=== PATIENT | male | born 1970 | race Two or more races ===

== ENCOUNTER 2025-06-15 06:41 | Emergency (ER) | payer SELFPAY ==
[2025-06-15 06:44] VITALS: BMI 29.5
[2025-06-15 06:54] VITALS: BP 114/71; PULSE 88; RESP 19; TEMP 36.9; O2SAT 98
--- NOTE | 2025-06-15 06:59 | XR_ITS ---
Examination: CT abdomen and pelvis without contrast. Coronal 3-D reconstructions. Sagittal 2-D reconstructions. Date and time of exam:June 14, 2012 2025, 0727 hrs. Indications: Constipation 2 weeks. CTDI: vol (mGy): 10.1. DLP: (mGycm): 678. Technique: Axial images of the abdomen have been obtained, 3 mm slice thickness Intravenous contrast material has not been administered. Low dose protocols were performed. One or more of the following dose reduction techniques were used; automated exposure control, adjustment of the mA and/or KV according to patient size, use of iterative reconstruction technique. Findings: Liver is irregular in contour Axial image 48 demonstrates 3 cm low-density lesion in the right lobe of the liver. Moderate hepatomegaly. Mild splenomegaly. Cholelithiasis. No pancreatic mass. No renal or ureteral calculi. Aorta normal size. Normal appendix. Colonic diverticulosis. Mild fluid in the pelvis which may relate to the patient's liver disease Markedly abnormal thickening of urinary bladder up to 20 mm Impression: Cirrhosis. Recommend elective MRI abdomen liver follow-up pre and postcontrast to confirm 3 cm right lobe liver lesion, differential would include hepatic metastasis, primary hepatocellular carcinoma Cholelithiasis Markedly abnormal thickening of urinary bladder wall, differential would include cystitis, urinary tract outflow obstruction secondary to the patient's moderate hepatomegaly, bladder carcinoma not excluded Recommend urology consultation and follow-up
--- NOTE | 2025-06-15 07:05 | EDNOTE_ITS ---
<Statement entered by Darshana Bucio MD - 06/15/25 15:15> As co-signing physician, I was present and available for consult prn. I concur with the plan and care as documented by the midlevel provider. ED Abdominal Pain RME/HPI General Chief Complaint: Abdominal Pain Stated complaint: NO BM IN 3 DAYS, ABD PAIN, VERY LITTLE URINE Time seen by provider: 06/15/25 06:51 Arrival date/time: 06/15/25 06:41 RME / HPI RME / HPI narrative: 54-year-old male patient with no previous medical history presents emergency department with complaint of abdominal pain, acid reflux and decreased urine production in the past 3 days. Patient denies any previous history of abdominal surgeries. Patient states that acid reflux is common when he drinks alcohol and he states he had some beer over the weekend. He denies any aggravating or alleviating factors. He rates his abdominal discomfort as a 5 out of 10. He denies chest pain, he denies bilateral lower leg swelling, he denies shortness of breath with or without activity. Related Data Allergies Allergy/AdvReac Type Severity Reaction Status Date / Time No Known Allergies Allergy Verified 06/15/25 06:44 Review of Systems Review of Systems Systems Reviewed: All systems reviewed, normal except as documented Constitutional Constitutional: Reports system reviewed and no additional complaints, except as documented Cardiovascular Cardiovascular: Reports system reviewed and no additional complaints, except as documented Respiratory Respiratory: Reports system reviewed and no additional complaints, except as documented Gastrointestinal Gastrointestinal: Reports system reviewed and no additional complaints, except as documented Genitourinary Genitourinary: Reports system reviewed and no additional complaints, except as documented ED Exam General General appearance: Present alert and in no apparent distress Head Head exam: Present atraumatic and normocephalic ENT ENT exam: Present normal exam and normal oropharynx Neck Neck exam: Present normal inspection and full ROM Chest Chest inspection: Present normal inspection and symmetric chest wall rise; Absent tenderness Respiratory Respiratory exam: Present normal lung sounds bilaterally Cardiovascular Cardiovascular exam: Present regular rate, normal rhythm and normal heart sounds Abdominal Exam Abdominal exam: Present soft and tenderness; Absent distention, guarding, rebound, rigidity, tenderness at McBurney's Point, ascites or mass Abdominal tenderness: Present diffuse Neurological Exam Neurological exam: Present alert and oriented X3 Psychiatric Psychiatric exam: Present normal affect Course Quality Measures none Orders Category Date Time Status CT abdomen pelvis wo con Stat Exams 06/15/25 06:59 Completed CBC Stat Lab 06/15/25 07:55 Completed CMP [Comprehensive Metabolic Panel] Stat Lab 06/15/25 07:55 Completed Urinalysis, C/S if Indicated Stat Lab 06/15/25 07:24 Completed Lidocaine 2% Viscous [Xylocaine 2% Viscous] Med 06/15/25 07:02 Discontinued 15 ml PO X1 ONE Magnesium Citrate Liqd [Citrate of Magnesia Liqd] Med 06/15/25 07:02 Discontinued 300 ml PO X1 ONE mg Hyd/Al Hyd/César Susp [Maalox Susp] Med 06/15/25 07:02 Discontinued 30 ml PO X1 ONE Vital Signs Vital signs: Vital Signs Temperature 98.4 F 06/15/25 06:54 Pulse Rate 88 06/15/25 06:54 Respiratory Rate 19 06/15/25 06:54 Blood Pressure 114/71 06/15/25 06:54 Pulse Oximetry (%) 98 06/15/25 06:54 Oxygen Delivery Method Room Air 06/15/25 06:54 Abdominal Pain MDM MDM Narrative MDM Narrative:: 54-year-old patient presents emergency department with complaint of difficulty with bowel movement over the last 3 days. He denies previous abdominal/GI surgeries. Patient also denies previous negative health history. Blood work was unremarkable except for mild elevation of liver enzymes total bilirubin was unremarkable CT abdomen and pelvis indicates liver masses. Patient currently has no primary care doctor discussed case with supervising MD who recommends that patient should be followed up with Dr. Hermelindo Gorman at [facility]. Patient remains afebrile and nontoxic-appearing in the emergency department patient is stable to [place] home. Patient data External records reviewed:: None Clinical information provided by:: none Social determinants that could affect healthcare access:: none Patient has the following chronic illnesses:: na How is presenting disease/condition affected by chronic disease/condition?: no chronic disease Evaluation data The following diagnostics were reviewed and interpreted by me:: lab results and radiology exam(s) Lab and/or radiology exams considered but not ordered:: lab and radiology considered Interpretation Summary: liver mass noted on CT Medications / Prescriptions Medications or Prescriptions considered but not ordered:: na Medication administrations:: Medication Administration History Discontinued Medications Al Hydrox/Mg Hydrox/Simethicone (Mg Hyd/Al Hyd/César (Maalox Reg) Susp 30 Ml Udc) 30 ml PO X1 ONE Stop: 06/15/25 07:03 Last Admin: 06/15/25 07:19 Dose: 30 ml Documented By: YANA Lidocaine HCl (Lidocaine Viscous 2% 15 Ml Udc) 15 ml PO X1 ONE Stop: 06/15/25 07:03 Last Admin: 06/15/25 07:19 Dose: 15 ml Documented By: YANA Magnesium Citrate (Magnesium Citrate 300 Ml Btl) 300 ml PO X1 ONE Stop: 06/15/25 07:03 Last Admin: 06/15/25 07:19 Dose: 300 ml Documented By: YANA per above Consultations Consultation(s) initiated? (list below): Yes Consultation #1 (Physician, Specialty, Details): Dr. Bucio supervising MD Diagnosis Differential diagnosis abdominal pain: abdominal pain, acute appendicitis, calculus of kidney, constipation, diverticulitis, pancreatitis and small bowel o bstruction Most likely diagnosis given after review of the tests above:: liver mass Admission Indicated Admission indicated?: not indicated Explain why admission is indicated or not indicated:: no live threatening emergency requiring admission Admission Request Was there a request for admission?: No Disposition Plan Disposition Plan: Discharge Discharge Attestation Discharge Attestation: The patient and all family members were given an opportunity to ask questions and understood the discharge instructions. Discharge instructions specifically effects, indications for sooner follow up or return to the emergency department, and the expected course of current diagnosis. Patient condition: Stable Discharge Plan Plan Patient Disposition: HOME (Self Care) Prescriptions/Referrals Referrals: [facility] [Outside] - 06/18/25 Referral Note: patient presented to the ED with complaint of constipation and decreased urine output, CT indicates liver mass and gallbladder thickening No Primary/Family,Physician [Primary Care Provider] - In 1 week Sherif Casarez MD [Resident, Internal Medicine] - 06/18/25 Referral Note: Patient was recently seen in ED for difficulty with BM, CT indicates gall bladder sludge and liver mass Problem List Clinical Impression: Abdominal pain, Thickening of wall of gallbladder, Liver mass Patient/Caregiver Discharge Instructions Education Materials: Abdominal Pain Print Language: [place] Stand Alone Forms: Kriss Award Info., Patient Portal Info Letter
[2025-06-15] MEDS: MG HYD/AL HYD/SIME (Maalox Reg) SUSP 30 ML UDC PO (07:19)
[2025-06-15] MEDS: LIDOCAINE VISCOUS 2% 15 ML UDC PO (07:19)
[2025-06-15] MEDS: MAGNESIUM CITRATE 300 ML BTL PO (07:19)
[2025-06-15 07:34] LABS: Collection Type, Urine Voided; Squamous Epithelial Cell,Urine 0 /hpf (0-5)
[2025-06-15 08:06] LABS: Basophils # (Auto) 0.0 Thou/mm3 (0.0-0.2); Basophils % (Auto) 1 % (0-2.5); Eosinophils # (Auto) 0.2 Thou/mm3 (0.0-0.5); Eosinophils % (Auto) 3 % (0-10); Hematocrit 42.7 % (41.0-53.0); Hemoglobin 14.3 g/dL (13.5-16.0); Immature Granulocytes Auto 0.01 Thou/mm3 (0.00-0.00); Lymphocytes # (Auto) 0.7 Thou/mm3 (1.0-4.8); Lymphocytes % (Auto) 10 % (10-50); Mean Corpuscular HGB Conc 33.5 g/dl (31.0-37.0); Mean Corpuscular Hemoglobin 29.8 pg (25.0-35.0); Mean Corpuscular Volume 89 fL (80-100); Monocytes # (Auto) 0.7 Thou/mm3 (0.0-0.8); Monocytes % (Auto) 9 % (0-12); Neutrophils # (Auto) 5.3 Thou/mm3 (1.8-7.7); Neutrophils % (Auto) 77 % (37-80); Nucleated Red Blood Cell # 0.00 Thou/mm3 (0.00-0.00); Nucleated Red Blood Cell % 0 /100 WBC (0); Platelet Count 257 Thou/mm3 (140-440); RDW Standard Deviation 40.7 fL (35.1-43.9); Red Blood Count 4.80 Miln/mm3 (4.50-5.90); White Blood Count 6.9 Thou/mm3 (3.8-10.6)
[2025-06-15 08:09] LABS: Bilirubin,Urine Negative (Negative); Blood,Urine Negative (Negative); Clarity,Urine Clear (Clear/Hazy); Color,Urine Yellow (Lt Yel-Yel); Culture Indicated,Urine Not Indicated; Glucose, Urine Negative (Negative); Ketones,Urine Negative (Negative); Leukocyte Esterase,Urine Negative (Negative); Nitrite,Urine Negative (Negative); PH,Urine 5.5 (5.0-7.0); Protein,Urine Trace (Neg - Trace); RBC,Urine < 1 /hpf (0-3); Specific Gravity,Urine 1.024 (1.001-1.035); Urobilinogen,Urine 2.0 mg/dL (0.0-1.0); WBC,Urine 2 /hpf (0-5)
[2025-06-15 08:23] LABS: Alanine Aminotransferase 35 U/L (10-49); Albumin, Serum 4.2 gm/dL (3.5-5.0); Albumin/Globulin Ratio 1.1 (1.2-2.2); Alkaline Phosphatase 153 U/L (46-116); Anion Gap 8 (7-16); Aspartate Amino Transferase 113 U/L (0-34); BUN/Creatinine Ratio 12 Ratio (12-20); Bilirubin,Total 1.0 mg/dL (0.3-1.2); Blood Urea Nitrogen 11 mg/dL (9-23); Calcium 9.9 mg/dL (8.3-10.6); Calcium (Corrected) 9.9 mg/dL (8.5-10.1); Carbon Dioxide 26.3 mMol/L (20.0-31.0); Chloride 100 mMol/L (98-107); Creatinine (Component) 0.9 mg/dL (0.6-1.3); Estimated Creatinine Clearance 106.9 mL/min (>60); Globulin 3.8 gm/dL (2.3-3.5); Glucose 111 mg/dL (74-106); Osmolality,Calculated 268 (275-295); Potassium 4.5 mMol/L (3.4-5.1); Sodium 134 mMol/L (136-145); Total Protein 8.0 gm/dL (5.7-8.2); eGFR > 60 See Note
== END 2025-06-15 10:29 | disposition home or self-care (01) ==
PROVIDERS: Physician Assistant; Emergency Provider Emergency Medicine
DX: R10.9 Unspecified abdominal pain (principal); R16.0 Hepatomegaly, not elsewhere classified; K82.8 Other specified diseases of gallbladder
CPT/HCPCS: 36415; 74176; 80053; 81001; 85025; 99284; J3490; A9270